=== PATIENT | female | born 1990 | race Caucasian/White ===

== ENCOUNTER 2024-07-30 10:00 | Outpatient (CLI) | payer MEDICAID, SELFPAY ==
--- NOTE | 2024-07-30 11:06 | ANES.PREANE2 ---
Pre-Anesthetic Assessment Preop Diagnosis: IUP Operation Date: 08/06/24 07:20 Proposed Procedures p Section Repeat 15547(Not Applicable) - Rajat Pryor MD Familial anesthetic complications: None Social No alcohol and No tobacco Exam alert, oriented x 3, clear to auscultation bilaterally and regular rate & rhythm Airway Mallampati: Class I Dentition: full Anesthetic Plan ASA status: 2 Anesthesia: Regional (specify below) Other: Spinal Risk of > 500 ml blood loss (7ml/kg in children): Yes, adequate IV access and fluids planned
--- OUTSIDE RECORDS SUMMARY | 2024-08-15 14:44 | XMS_ITS | Data Portability ---
Author Organization DELISA Eloy Cummings [facility], [facility] Address [address] [address] Assessment Encounter Date Assessment Date Assessment LastModified by Organization Details LastModified Time 07/17/2024 07/17/2024 We once again discussed the risks of an ltcs and her increased risks due to the number of ltcs that she has had. Not available 07/17/2024 11:44:27 07/31/2024 07/31/2024 Recheck cbc due to anemia and ltcs next week. Not available 07/31/2024 12:54:35 Plan of Treatment Reminders Order Date Submit Date Provider Last Modified By Organization Details Last Modified Time Details Appointments POST-P ARTUM VISIT 2024 09:40A M Rajat Pryor MD Not available Not available Not available Lab CBC 2024 025 GRZEGORZ [facility], [address], [place], [address], 07/31/2024 13:15:05 strept ococcu s group B, cultur e, vagina l or rectal 2024 025 kat [facility], [facility] [address] Rodriguez, [place], [address], 07/25/2024 09:21:07 Referral None record ed. Procedures None record ed. Surgeries None record ed. Imaging None record ed. Medication Orders None record ed. Patient TargetsNo targets recorded. Patient InstructionsNo instructions recorded. Reason for Referral None Reported. Results Created Date Observation Date Name Description Value Unit Range Abnormal Flag Note LastModifiedBy Organization Detail LastModifiedTime 06/30/1906/29/2024 CBC WBC 10.7 x10 4.0-10 .5 high Not Available [facility] [address], [place], [address], 06/29/2024 13:03:35 06/30/19 25 06/29/2024 CBC RBC 3.96 x10 3.50-5 .50 Not Available [facility] [address], [place], [address], 06/29/2024 13:03:35 06/30/19 25 06/29/2024 CBC HGB 8.9 g/dL 12.0-1 6.0 low Not Available [facility] [address] [facility] 1, [place], [address], 06/29/2024 13:03:35 06/30/19 25 06/29/2024 CBC HCT 29.4 % 37.0-4 7.0 low Not Available [facility] [address] [facility] 1, [place], [address], 06/29/2024 13:03:35 06/30/19 25 06/29/2024 CBC MCV 74.2 fL 80.0-9 9.9 low Not Available [facility] [address] [facility] 1, [place], [address], 06/29/2024 13:03:35 06/30/19 25 06/29/2024 CBC MCH 22.5 pg 27.0-3 2.0 low Not Available [facility] [address] [facility] [address], [place], [address], 06/29/2024 13:03:35 06/30/19 25 06/29/2024 CBC MCHC 30.3 g/dL 32.0-3 6.0 low Not Available [facility] [address] [place] Kiana [facility] 1, [place], [address], 06/29/2024 13:03:35 06/30/19 25 06/29/2024 CBC RDW 17.9 % 11.5-1 4.5 high Not Available [facility] [address] [facility] 1, [place], [address], 06/29/2024 13:03:35 06/30/19 25 06/29/2024 CBC plt 209.1 x10 140.0- 451.0 Not Available [facility] [address] [facility] 1, [place], [address], 06/29/2024 13:03:35 06/30/19 25 06/29/2024 CBC lymphocytes % 10.5 % 20.0-5 0.0 low Not Available [facility] [address] [facility] 1, [place], [address], 06/29/2024 13:03:35 06/30/19 25 06/29/2024 CBC granulcytes % 83.8 % 30.0-7 0.0 high Not Available [facility] [address] [facility] 1, [place], [address], 06/29/2024 13:03:35 06/30/1906/29/2024 CBC monocytes % 4.7 % 2.0-16 .0 Not Available [facility] [address] [place] [facility], [place], [address], 06/29/2024 13:03:35 06/30/1906/29/2024 CBC granulcytes# 9.0 x10 Not Lashon ilable [facility] [address] [facility] 1, [place], [address], 06/29/2024 13:03:35 06/30/19 25 06/29/2024 CBC lymphocytes # 1.1 x10 Not Available [facility] [address] [facility] 1, [place], [address], 06/29/2024 13:03:35 06/30/19 25 06/29/2024 CBC monocytes # 0.5 x10 Not Avai lable [facility] [address] [facility] 1, [place], [address], 06/29/2024 13:03:35 06/30/19 25 06/29/2024 GLUCO SE SCREE N glucose screen 126.0 mg/dL Not Available [facility] [address] [facility] 1, [place], [address], 06/29/2024 13:26:37 06/30/19 25 06/30/2024 DRUG MONIT OR, PANEL 1, SCREE N, URINE amphetamines NEGATI VE NG/mL <500 See Note A See Note A Not Available [employer] [address] [address] [address], [place], [address], 06/30/2024 22:41:00 06/30/19 25 06/30/2024 DRUG MONIT OR, PANEL 1, SCREE N, URINE barbiturates NEGATI VE NG/mL <300 See Note A See Note A Not Available [employer] [address] [address] [address], [place], [address], 06/30/2024 22:41:00 06/30/19 25 06/30/2024 DRUG MONIT OR, PANEL 1, SCREE N, URINE benzodiazepi [place] NEGATI VE NG/mL <100 See Note A See Note A Not Available [facility] [address] [address] [address], [place], [address], 06/30/2024 22:41:00 06/30/19 25 06/30/2024 DRUG MONIT OR, PANEL 1, SCREE N, URINE cocaine metabolite NEGATI VE NG/mL <150 See Note A See Note A Not Available [facility] [address] [address] [address], [place], [address], 06/30/2024 22:41:00 06/30/1906/30/2024 DRUG MONIT OR, PANEL 1, SCREE N, URINE marijuana metabolite NEGATI VE NG/mL <20 See Note A See Note A Not Available [address] [address] [address], [place], [address], 06/30/2024 22:41:00 06/30/19 25 06/30/2024 DRUG MONIT OR, PANEL 1, SCREE N, URINE methadone metabolite NEGATI VE NG/mL <100 See Note A See Note A Not Available [employer] [address] [address] [address], [place], [address], 06/30/2024 22:41:00 06/30/19 25 06/30/2024 DRUG MONIT OR, PANEL 1, SCREE N, URINE opiates NEGATI VE NG/mL <100 See Note A See Note A Not Available [employer] [facility] [address] [address] [address], [place], [address], 06/30/2024 22:41:00 06/30/1906/30/2024 DRUG MONIT OR, PANEL 1, SCREE N, URINE oxycodone NEGATI VE NG/mL <100 See Note A See Note A Not Available [employer] [address] [address] [address], [place], [address], 06/30/2024 22:41:00 06/30/1906/30/2024 DRUG MONIT OR, PANEL 1, SCREE N, URINE phencyclidin e NEGATI VE NG/mL <25 See Note A See Note A Not Available [address] [address] [address], [place], [address], 06/30/2024 22:41:00 06/30/19 25 06/30/2024 DRUG MONIT OR, PANEL 1, SCREE N, URINE creatinine 10.9 mg/dL > or = 20.0 low Not Available [address] [address] [address], [place], [address], 06/30/2024 22:41:00 06/30/1906/30/2024 DRUG MONIT OR, PANEL 1, SCREE N, URINE specific gravity 1.003 > or = 1.003 Not Available [address] [address] [address], [place], [address], 06/30/2024 22:41:00 06/30/1906/30/2024 DRUG MONIT OR, PANEL 1, SCREE N, URINE pH 7.8 4.5-9. 0 Not Available [facility] [address] [address] [address] , [place], [address], 06/30/2024 22:41:00 06/30/1906/30/2024 DRUG MONIT OR, PANEL 1, SCREE N, URINE oxidant NEGATI VE mcg/m L <200 Not Available [address] [address] [place], [address], 06/30/2024 22:41:00 06/30/1906/30/2024 DRUG MONIT ORING TEMPL ATE notes and comments This drug testi ng is for medic al treat ment only. Geeta sis was perfo rmed as non-f orens ic testi ng and these resul ts shoul d be used only by [facility] to rende r diagn osis or treat ment, or to monit or progr ess of medic al condi tions . Note A: The resul ts are presu mptiv e; based only on scree sandro metho ds, and they have not been confi rmed by a defin itive metho d. Healt hcare Provi ders needi ng Inter preta tion sherry tansarah thomas e conta ct us at 1.877 .40.R XTOX (1.87 7.407 .9869 ) M-F, 8am to 10pm EST Not Available [address] [address] [place], [address], 06/30/2024 22:41:01 06/30/19 25 07/03/2024 THINP REP TIS PAP (REFL ) HPV MRNA E6/E7 clinical information: normal Pregn ant Not Available [address], [address], 07/03/2024 19:21:29 06/30/19 25 07/03/2024 THINP REP TIS PAP (REFL ) HPV MRNA E6/E7 LMP: normal NA Not Available [address], [address], 07/03/2024 19:21:29 06/30/19 25 07/03/2024 THINP REP TIS PAP (REFL ) HPV MRNA E6/E7 prev. Pap: normal NA Not Available [address], [address], 07/03/2024 19:21:29 06/30/19 25 07/03/2024 THINP REP TIS PAP (REFL ) HPV MRNA E6/E7 prev. BX: normal NA Not Available [address], [address], 07/03/2024 19:21:29 06/30/19 25 07/03/2024 THINP REP TIS PAP (REFL ) HPV MRNA E6/E7 source: normal Cervi x, Endoc ervix Not Available [address], [address], 07/03/2024 19:21:29 06/30/1907/03/2024 THINP REP TIS PAP (REFL ) HPV MRNA E6/E7 statement of adequacy: normal Satis facto ry for evalu ation . Endoc ervic al/tr ansfo rmati on zone compo nent absen t. Not Available [address], [address], 07/03/2024 19:21:29 06/30/19 25 07/03/2024 THINP REP TIS PAP (REFL ) HPV MRNA E6/E7 interpretati on/result: normal Cytol ogy Resul ts: Negat rayne for intra epith elial lesio n or malaustin thomson . Not Available [address], [address], 07/03/2024 19:21:29 06/30/19 25 07/03/2024 THINP REP TIS PAP (REFL ) HPV MRNA E6/E7 comment: normal This Pap test has been evalu ated with al mondragon [employer] o[employer]y . Not Available [address] [place], [address], 07/03/2024 19:21:29 06/30/1907/03/2024 THINP REP TIS PAP (REFL ) HPV MRNA E6/E7 cytotechnolo gist: normal CLIVE, CT( CP) CT scree sandro locat ion: [address] [address] [place] [address] Not Available [address] [address] [place], [address], 07/03/2024 19:21:29 06/30/1907/03/2024 THINP REP TIS PAP (REFL ) HPV MRNA E6/E7 review cytotechnolo gist: normal MVB, CT( CP) CT Scree sandro Locat ion: [address] [address] [place] [address] Not Available [address] [place], [address], 07/03/2024 19:21:29 06/30/1907/03/2024 THINP REP TIS PAP (REFL ) HPV MRNA E6/E7 comment EXPLA NATOR Y NOTE: The Pap is a scree sandro test for cervi hamlet cance r. It is not a diagn ostic test and is subje ct to false negat rayne and false posit rayne resul ts. It is most relia ble when a satis facto ry sampl e, regul dottie obtai shaka, is submi tted with relev ant clini hamlet findi ngs and histo ry, and when the Pap resul t is evalu ated along with histo maria elena and curre nt clini hamlet infor matio n. Not Available [facility] [address] [place], [address], 07/03/2024 19:21:29 06/30/1906/29/2024 reuben wet prep Whiff negati ve Not Available [facility] ([facility]) [address] [place] [address], [address], 06/29/2024 11:54:17 06/30/19 25 06/29/2024 reuben wet prep Epi 6-8 Not Available [facility] ([facility]) [address] [place] [address], [address], 06/29/2024 11:54:17 06/30/19 25 06/29/2024 reuben wet prep WBC 6-8 Not Available [facility] ([facility]) [address] [place] [address], [address], 06/29/2024 11:54:17 06/30/1906/29/2024 reuben wet prep RBC 0-1 Not Available [facility] ([facility]) [address] [place] [address], [address], 06/29/2024 11:54:17 06/30/1906/29/2024 reuben wet prep Bacteria 4++++ mixed rods Not Available [facility] ([facility]) [address] [place] [address], [address], 06/29/2024 11:54:17 06/30/1906/29/2024 reuben wet prep Fungus none seen Not Available [facility] ([facility]) [address] [place] [address], [address], 06/29/2024 11:54:17 06/30/19 25 06/29/2024 reuben wet prep Clue Cells positi ve Not Available [facility] ([facility]) [address] [place], [address], 06/29/2024 11:54:17 06/30/19 25 06/29/2024 reuben wet prep Other no trich seen Not Available [facility] ([facility]) [address] [place], [address], 06/29/2024 11:54:17 07/19/19 25 07/23/2024 STREP TOCOC CUS, GROUP B CULTU RE streptococcu s, group B culture SEE NOTE abnormal STREP TOCOC CUS, GROUP B CULTU RE Micro Numbe r: [id number] Test Statu s: Final Speci men Sourc e: Vagin al/an orect al Speci men Quali ty: Adequ ate Resul t: Group B Strep tococ cus isola catherine Beta- hemol ytic strep tococ ci are predi ctabl y susce ptibl e to Penic illin and other beta- lacta ms. Susce ptibi lity testi ng not routi sunny perfo rmed. Pleas e conta ct the labor atory withi n 3 days if susce ptibi lity testi ng is theo ed. Note per CDC guide lines optim al recov frank is achie dina by swabb ing both the lower vagin a and rectu m (thro ugh the anal sphin cter) . Not Available [facility] [address] [address] , [place], [address], 07/23/2024 17:17:19 08/01/1907/31/2024 CBC WBC 7.5 x10 4.0-10 .5 Not Available [facility] [address] [facility] [address], [place], [address], 07/31/2024 13:15:05 08/01/19 25 07/31/2024 CBC RBC 3.79 x10 3.50-5 .50 Not Available [facility] [address] [facility] [address], [place], [address], 07/31/2024 13:15:05 08/01/19 25 07/31/2024 CBC HGB 8.3 g/dL 12.0-1 6.0 low Not Available [facility] [address] [facility] 1, [place], [address], 07/31/2024 13:15:05 08/01/19 25 07/31/2024 CBC HCT 27.8 % 37.0-4 7.0 low Not Available [facility] [address] [facility] 1, [place], [address], 07/31/2024 13:15:05 08/01/19 25 07/31/2024 CBC MCV 73.3 fL 80.0-9 9.9 low Not Available [facility] [address] [facility] 1, [place], [address], 07/31/2024 13:15:05 08/01/19 25 07/31/2024 CBC MCH 21.8 pg 27.0-3 2.0 low Not Available [facility] [address] [facility] 1, [place], [address], 07/31/2024 13:15:05 08/01/19 25 07/31/2024 CBC MCHC 29.7 g/dL 32.0-3 6.0 low Not Available [facility] [address] [facility] 1, [place], [address], 07/31/2024 13:15:05 08/01/19 25 07/31/2024 CBC RDW 19.4 % 11.5-1 4.5 high Not Available [facility] [address] [facility] 1, [place], [address], 07/31/2024 13:15:05 08/01/19 25 07/31/2024 CBC plt 168.5 x10 140.0- 451.0 Not Available [facility] [address] [facility] 1, [place], [address], 07/31/2024 13:15:05 08/01/19 25 07/31/2024 CBC lymphocytes % 21.9 % 20.0-5 0.0 Not Available [facility] [address] [facility] 1, [place], [address], 07/31/2024 13:15:05 08/01/19 25 07/31/2024 CBC granulcytes % 72.7 % 30.0-7 0.0 high Not Available [facility] [address] [address], [place], [address], 07/31/2024 13:15:05 08/01/19 25 07/31/2024 CBC monocytes % 4.5 % 2.0-16 .0 Not Available [facility] [address] [address], [place], [address], 07/31/2024 13:15:05 08/01/19 25 07/31/2024 CBC granulcytes# 5.4 x10 Not Lashon ilable [facility] [address] [address], [place], [address], 07/31/2024 13:15:05 08/01/19 25 07/31/2024 CBC lymphocytes # 1.6 x10 Not Available [facility] [address] [address], [place], [address], 07/31/2024 13:15:05 08/01/19 25 07/31/2024 CBC monocytes # 0.3 x10 Not Avai lable [facility] [address] [address], [place], [address], 07/31/2024 13:15:05 07/05/19 25 06/27/2024 US, obste tric, 3rd trime ster No observ ation record ed. [facility] [address] [place], [address], 07/05/2024 09:21:49 07/12/19 25 07/10/2024 US, obste tric, 3rd trime ster No observ ation record ed. [email or web address] Not Available 07/12 09:28:37 Result Notes None recorded. Problems Name Problem SNOMED Code Status Onset Date Resolution Date Notes Provider Name and Address Organization Details Recorded Time 33148763 Completed 202408/07/2024 GAY DUQUE null [facility] 10:56:50 Heartburn 20569048 Active 2024 GAY DUQUE null [facility] 14:47:46 Multigravid a 512842082 Completed 2024 SHAHRIAR gutierrez, [facility] 09:04:11 Anemia of 37273479 Active 2024 Rajat Pryor MD [address] [place] [address], [phone], [facility] 12:27:22 Anemia 753572529 Active 2024 Rajat Pryor MD [address] [place] [address], [phone], [facility] 11:59:29 Problem Notes None recorded. Procedures Surgical History Date Name Laterality Status Provider Name and Address Organization Details Recorded Time 06/30/19 cytology examination - general completed [facility] 07/17/2024 10:34:14 section completed [facility] 08/07/2024 10:59:00 Imaging Results None recorded. Procedure Notes None recorded. Medical Equipment None Reported. Allergies No known drug allergies Medications Name Sig Start Date Stop Date Status Note LastModified by Organization Details LastModified Time ibuprofen 800 mg tablet Take 1 tablet 3 times a day by oral route. active Not Available Not Available No t Available metronidazol e 500 mg tablet Take 1 tablet twice a day by oral route for 7 days. 07/16 completed vo JR/tn Not Available Not Available Not Available pantoprazole 20 mg tablet,delay ed release TAKE 1 TABLET BY MOUTH EVERY DAY active Not Available Not Available No t Available pantoprazole 40 mg tablet,delay ed release TAKE ONE TABLET BY MOUTH EVERY DAY 06/29 completed Not Available Not Available Not Available ferrous sulfate 325 mg (65 mg iron) tablet TAKE 2 TABLETS BY MOUTH EVERY DAY active Not Available Not Available No t Available active Not Available Not Avai lable Not Available oxycodone 10 mg tablet Take 1 tablet every 4 hours by oral route. active Not Available Not Available No t Available Vitals Date Recorded Body height Body mass index (BMI) Body weight Oxygen saturation Oxygen saturation in Arterial blood by Pulse oximetry Heart rate Respiratory rate Body temperature Systolic blood pressure Diastolic blood pressure Provider Name and Address Organization Details Last Updated DateTime 5 147.32 cm 25.8 kg/m2 96155.6 6 g 96 % 96 % 89 /min 18 /min 98.8 [degF] 100 mm[Hg] 64 mm[Hg] [facility] 5 15:02:40 Date Recorded Body height Body mass index (BMI) Body weight Oxygen saturation Oxygen saturation in Arterial blood by Pulse oximetry Heart rate Respiratory rate Body temperature Systolic blood pressure Diastolic blood pressure Provider Name and Address Organization Details Last Updated DateTime 5 147.32 cm 25 kg/m2 79864.2 9 g 99 % 99 % 84 /min 18 /min 96.6 [degF] 110 mm[Hg] 62 mm[Hg] [facility] 5 10:41:50 Date Recorded Body height Body mass index (BMI) Body weight Oxygen saturation Oxygen saturation in Arterial blood by Pulse oximetry Heart rate Respiratory rate Body temperature Systolic blood pressure Diastolic blood pressure Provider Name and Address Organization Details Last Updated DateTime 147.32 cm 25.6 kg/m2 40362.6 7 g 97 % 97 % 71 /min 18 /min 98.7 [degF] 104 mm[Hg] 62 mm[Hg] GAY DUQUE [facility] 12:03:52 Date Recorded Body height Body mass index (BMI) Body weight Oxygen saturation Oxygen saturation in Arterial blood by Pulse oximetry Heart rate Respiratory rate Body temperature Systolic blood pressure Diastolic blood pressure Provider Name and Address Organization Details Last Updated DateTime 147.32 cm 24.3 kg/m2 18475.1 1 g 99 % 99 % 86 /min 18 /min 98.4 [degF] 118 mm[Hg] 72 mm[Hg] GAY DUQUE [facility] 11:05:03 Social History Question Answer Notes LastModified by Duplia Details LastModified Time Tobacco Smoking Status Current Every Day Smoker less than 1/2 PPD GAY gutierrez [facility] 07/17/2024 10:35:11 Are You Blind Or Do You Have Difficulty Seeing? No Information not available 06/21/2024 Are You Deaf Or Do You Have Serious Difficulty Hearing? No Information not available 06/21/2024 What Was The Date Of Your Most Recent Tobacco Screening? 07/17/2024 Information not available 07/17/2024 What Is Your Relationship Status? Information not available 06/21/2024 Are You Sexually Active? Yes Information not available 06/21/2024 At What Age Did You Start Smoking Tobacco? 19 Information not available 06/21/2024 Do You Have Difficulty Walking Or Climbing Stairs? No Information not available 06/21/2024 Sex: Unknown Functional Status Question Answer Note LastModified by Organizat ion Details LastModified Time Do you use any illicit or recreational drugs? No Information not available 06/21/2024 What is your level of alcohol consumption? None Information not available 06/21/2024 Are you currently employed? No Information not available 06/21/2024 Are you able to care for yourself? Yes Information not available 06/21/2024 Do you have difficulty dressing or bathing? No Information not available 06/21/2024 Mental Status Question Answer Note LastModified by Organization D etails LastModified Time Do you have difficulty concentrating, remembering or making decisions? No Information no t available 06/21/2024 Family History Relationship Description Onset Age of this Age Resolved Age Notes LastModified by Organization Details LastModified Time Father No current problems or disability [email or web address] Not available 0 06/21/2024 14:50:31 Mother No current problems or disability [email or web address] Not available 0 06/21/2024 14:50:31 Medical History No medical history recorded. Gynecological HistoryNo gynecological history recorded. Obstetrics History GPAL:G 7 P 7 0 0 7 Type Value Full Term 7 Living 7 Total 7 Past Encounters Encounter ID Performer Location Encounter Start Date Encounter Closed Date Diagnosis/Indication Diagnosis SNOMED-CT Code Diagnosis ICD10 Code Diagnosis Note [id number] Rajat Pryor MD [facility] ([facility]) [address] [place] [phone] 06/21/2024 14:16:23 06/21/2024 15:44:35 Multigravida 853298290 Z34.83 Gestation period, 32 weeks 8797933 Z3A.32 Heartburn 53545538 R12 41513568 O34.2 19 Eval placental location. [id number] Rajat Pryor MD [facility] ([facility]) [address] [place] [phone] 06/29/2024 10:19:50 06/29/2024 11:25:24 Multigravida 893055052 Z34.83 Gestation period, 32 weeks 5760891 Z3A.32 [id number] Rajat Pryor MD [facility] ([facility]) [address] [place] [address] 06/27/2024 16:13:40 06/29/2024 13:53:05 [id number] Rajat Pryor MD [facility] ([facility]) [address] [place] [phone] 07/10/2024 14:06:23 07/11/2024 08:47:17 [id number] Rajat Pryor MD [facility] ([facility]) [address] [place] [address] 07/17/2024 10:22:33 07/17/2024 11:44:43 [id number] O34.219 Eval placental location. Normal 4958145 2 Z34.83 Gestation period, 35 weeks 19978520 Z3A.35 [id number] Rajat Pryor MD [facility] ([facility]) [address] [place] [address] 07/31/2024 11:19:34 07/31/2024 13:03:09 [id number] O34.219 Eval placental location. Normal pre gnancy in multigravida 5652906768 31818 Z34.80 Gestation period, 37 weeks 94342865 Z3A.37 Anemia of 2734 2003 O99.486 [id number] Rajat Pryor MD [facility] ([facility]) [address] [place] [phone] 08/07/2024 10:40:52 08/08/2024 11:36:06 state 72512411 Z39.2 care status 24 4824900 Z39.2 Anemia 893272784 D64.9 Health Concerns Section Related Observation LastModified by Organization Detai ls LastModified Time None Recorded Concern Status LastModified by Organization Details LastModified Time None Recorded Advance Directives Directive None Recorded Payers Insurance Date Sequence Insurance Name Policy Number Policy Rubin Covered Member ID Rubin Member ID Guarantor Name 08/04/2024 1 [facility] (MEDICAID HMO) Margaret Rasmussen [id number] Margaret Rasmussen 08/04/2024 [facility] (MEDICAID HMO) Margaret Chesterook [id number] Margaret Blake Valery 06/21/2024 1 *SELF PAY* cristhian Blake Valery Notes Date Note Type Note Provider Name and Address Organization Details Recorded Time 07/17/2024 text/html ob routineRep orted bypatient.Associated Symptoms:normal movement; no bleeding; no ROM; no vaginal/vulvar itching or irritation; no frequency; no urgency; no hematuria; no fever; no constipation; no diarrhea/loose stool; no edema; no visual changes; no headache;abdominal pain(right side);contractions(ir regular);vaginal discharge(increased); dysuria(random);nause a;emesis;dizziness;br eathlessnessNotes:Rou nd ligament pain, acid reflux, vaginal pressurePt denies any alcohol or drug use, pt smokes daily transfer from [place] Pt has had a cough for 3 weeks, pt states her ribs hurt and she has chest pain/tightness. Rajat Pryor MD [address] [place] [address], [phone], [facility] 07/17/2024 11:44:37 07/31/2024 text/html ob routineRep orted bypatient.Associated Symptoms:no cramping; normal movement; no bleeding; no ROM; no vaginal discharge; no vaginal/vulvar itching or irritation; no dysuria; no frequency; no urgency; no hematuria; no fever; no edema; no visual changes; no headache; no breathlessness;abdomi nal pain(right side);contractions(ir regular);nausea;emesi s;constipation;diarrh ea/loose stool;dizzinessNotes: Round ligament pain, acid reflux, vaginal pressure low/mid back painPt denies any alcohol or drug use, pt smokes daily transfer from [place] Rajat Pryor MD [address] [place] [address], [phone], [facility] 07/31/2024 12:55:14 OBGyn Episode Ob Episode Information Episode Created Date Number of Fetuses Patient Bloodtype Patient rh Status Prepregnancy Weight lbs Domestic Partner Domestic Partner Phone Father Name Improvement Rn Status 06/22/19 1 O Positive Jose Antonio CLOSED Fetus Data First Name Last Name Admitted to NICU Weight (g) Sex Living Outcome Pediatric Complications Fetus ID Race Codes Race Delivery Type Ricky false 2523.10 55 M true Full Term 8103 Problems Problem Notes Review previous U/S from 2nd trimesterHaving ltcs before 39 weeks due to high number of c-sections and risk of uterine rupture if she goes into labor.-08/06/24 Problem Name Start Date End Date Resolution Snomed Code Not e Multigravida 06/29/2024 [id number] Michael Calculation Initial Michael Date Initial Exam Date Initial Exam Provider Initial Ultrasound Date Last Menstrual Period Date Ultra Sound Weeks Gestation 06/21/2024 11/11/2023 0 Eighteen To Twenty Week Michael Update Ultra Sound Date Fundal Height At Umbil Quickening Date Ultra Sound Latest Weeks Gestation Final Michael Confirmed By Final Michael Confirmed Date Final Michael Date Ultra Sound Latest Days Gestation 0 08/16/19 25 0 Pre-jd Flowsheet Flowsheet Date 06/21/2024 Cordova Score Blood Edema Fundus Height Fundus Units Glucose Ketones Leukocytes Nitrite Labor Signs Protein Cervic Dilation Cervic Effacement Cervic Station 31 cm [place] Crane Type Weight in lbs Pre/Post Dialysis Refused Weight 124.325034810929 BP Diastolic BP Location Tested BP Systolic BP Type 60 112 sitting Fetus Heart Rate Present A 158 Present Fetus Movement A Yes Comments OBI transfer from [place] Flowsheet Date 06/21/2024 Cordova Score Blood Edema Fundus Height Fundus Units Glucose Ketones Leukocytes Nitrite Labor Signs Protein Cervic Dilation Cervic Effacement Cervic Station Type Weight in lbs Pre/Post Dialysis Refused BP Diastolic BP Location Tested BP Systolic BP Type Fetus Heart Rate Present Fetus Movement Comments scheduled for 08/06, anesthesia consult-07/30/24 Flowsheet Date 06/27/2024 Cordova Score Blood Edema Fundus Height Fundus Units Glucose Ketones Leukocytes Nitrite Labor Signs Protein Cervic Dilation Cervic Effacement Cervic Station Type Weight in lbs Pre/Post Dialysis Refused BP Diastolic BP Location Tested BP Systolic BP Type Fetus Heart Rate Present Fetus Movement Comments Flowsheet Date 06/29/2024 Cordova Score Blood Edema Fundus Height Fundus Units Glucose Ketones Leukocytes Nitrite Labor Signs Protein Cervic Dilation Cervic Effacement Cervic Station none trace Type Weight in lbs Pre/Post Dialysis Refused Weight 122.189386262136 BP Diastolic BP Location Tested BP Systolic BP Type 70 118 Fetus Heart Rate Present A 132 Fetus Movement A Yes Comments Flowsheet Date 07/03/2024 Cordova Score Blood Edema Fundus Height Fundus Units Glucose Ketones Leukocytes Nitrite Labor Signs Protein Cervic Dilation Cervic Effacement Cervic Station Type Weight in lbs Pre/Post Dialysis Refused BP Diastolic BP Location Tested BP Systolic BP Type Fetus Heart Rate Present Fetus Movement Comments u/s on 06/27/24, MICHAEL 08/15/24, EGA 33.0, vertex, No previa seen. Flowsheet Date 07/10/2024 Cordova Score Blood Edema Fundus Height Fundus Units Glucose Ketones Leukocytes Nitrite Labor Signs Protein Cervic Dilation Cervic Effacement Cervic Station Type Weight in lbs Pre/Post Dialysis Refused BP Diastolic BP Location Tested BP Systolic BP Type Fetus Heart Rate Present Fetus Movement Comments u/s on 07/10/24 Vertex, MICHAEL , Nose/lips appear normal Flowsheet Date 07/10/2024 Cordova Score Blood Edema Fundus Height Fundus Units Glucose Ketones Leukocytes Nitrite Labor Signs Protein Cervic Dilation Cervic Effacement Cervic Station 33 cm none none Negative [place] Crane neg Type Weight in lbs Pre/Post Dialysis Refused Weight 123.601753619207 BP Diastolic BP Location Tested BP Systolic BP Type 64 100 sitting Fetus Heart Rate Present A 142 Present Fetus Movement A Yes Comments abdominal pain/cramping, belkis rrhea,constipation, N/V,round ligament pain, acid reflux,vaginal pressure, random dysuria Flowsheet Date 07/10/2024 Cordova Score Blood Edema Fundus Height Fundus Units Glucose Ketones Leukocytes Nitrite Labor Signs Protein Cervic Dilation Cervic Effacement Cervic Station Type Weight in lbs Pre/Post Dialysis Refused BP Diastolic BP Location Tested BP Systolic BP Type Fetus Heart Rate Present Fetus Movement Comments Flowsheet Date 07/17/2024 Cordova Score Blood Edema Fundus Height Fundus Units Glucose Ketones Leukocytes Nitrite Labor Signs Protein Cervic Dilation Cervic Effacement Cervic Station none trace Negative David Crane neg Type Weight in lbs Pre/Post Dialysis Refused Weight 119.798331453346 BP Diastolic BP Location Tested BP Systolic BP Type 62 110 sitting Fetus Heart Rate Present A 150 Present Fetus Movement A Yes Comments cough,rib pain,chest tightne ss, right side abd pain, increased discharge, vaginal pressure, N/V, random dysuria, acid reflux, sob, dizziness, round ligament pain Group B today Flowsheet Date 07/17/2024 Cordova Score Blood Edema Fundus Height Fundus Units Glucose Ketones Leukocytes Nitrite Labor Signs Protein Cervic Dilation Cervic Effacement Cervic Station Type Weight in lbs Pre/Post Dialysis Refused BP Diastolic BP Location Tested BP Systolic BP Type Fetus Heart Rate Present Fetus Movement Comments RA for Home State Flowsheet Date 07/26/2024 Cordova Score Blood Edema Fundus Height Fundus Units Glucose Ketones Leukocytes Nitrite Labor Signs Protein Cervic Dilation Cervic Effacement Cervic Station Type Weight in lbs Pre/Post Dialysis Refused BP Diastolic BP Location Tested BP Systolic BP Type Fetus Heart Rate Present Fetus Movement Comments Group B strep PositiveOB rec ords sent Flowsheet Date 07/31/2024 Cordova Score Blood Edema Fundus Height Fundus Units Glucose Ketones Leukocytes Nitrite Labor Signs Protein Cervic Dilation Cervic Effacement Cervic Station 35 cm none trace Negative [place] Crane Type Weight in lbs Pre/Post Dialysis Refused Weight 122.391502191903 BP Diastolic BP Location Tested BP Systolic BP Type 62 104 sitting Fetus Heart Rate Present A 148 Present Fetus Movement A Yes Comments Right side pain, abdominal p ain, nausea/vomiting, constipation/diarrhea,dizziness, mid/low back pain vaginal pressure Flowsheet Date 08/07/2024 Cordova Score Blood Edema Fundus Height Fundus Units Glucose Ketones Leukocytes Nitrite Labor Signs Protein Cervic Dilation Cervic Effacement Cervic Station Type Weight in lbs Pre/Post Dialysis Refused Weight 116.768658023486 BP Diastolic BP Location Tested BP Systolic BP Type 72 118 sitting Fetus Heart Rate Present Fetus Movement Comments Menstrual History Last Menstrual Date Menses Monthly On Bcp Conception Prior Menses Frequency Hcg Plus Date Menarche Onset Age 0911/11/2023 Genetic Screening And Infection History Question Response Note Patient's Age Will Be 35 Years Or Older At Estim ated Date of Delivery false Thalassemia (Bolivian, Gabonese, Mediterranean, Or Background): MCV < 80 false Neural Tube Defect (Meningomyelocele, Spina Bifi da, Or Anencephaly) false Congenital Heart Defect false Down Syndrome false Dimitri-Sachs (eg, Jew, Cajun, Urdu-[place]) f alse Kem Disease false Sickle Cell Disease Or Trait () false Hemophilia Or Other Blood Disorders false Muscular Dystrophy false Cystic Fibrosis false Baraga's Chorea false Intellectual Disability/Autism false If Yes, Was Person Tested For Fragile X? false Other Inherited Genetic Or Chromosomal Disorder false Maternal Metabolic Disorder (eg, Type 1 Diabetes , PKU) false Patient Or Baby's Father Had A Child With Defects Not Listed Above false Recurrent Loss, Or A Stillbirth false Medications (including Suppl ements, Vitamins, Herbs, OTC Drugs), Illicit/Recreational Drugs, Alcohol false If Yes, Agent(s) And Strength/Dosage false Any Other Genetic History false Live With Someone With TB Or Exposed To TB false Patient Or Partner Has History Of Genital Herpes false Rash Or Viral Illness Since Last Menstrual Perio d false History Of STD, Gonorrhea, Chlamydia, HPV, Syphi lis false Other Infection History false History of HIV false History of Hepatitis false Prior GBS-infected child false Hemoglobinopathy Or Carrier false Other Structural Defect false Recent Travel History Outside of Country false Mental Retardation/Autism false Delivery Information Delivery Date Delivery Type Labor Anesthesia Weeks Gestation Incision Type Labor Labor Length Hrs Delivered By Post Complications Tubal Sterilization Discharge Date Comments 5 38.1 None Discharge Information Feeding Method Contraceptive Method Maternal HG B and HCT Levels Breast Ob Episode Information Episode Created Date Number of Fetuses Patient Bloodtype Patient rh Status Prepregnancy Weight lbs Domestic Partner Domestic Partner Phone Father Name Improvement Rn Status 06/22/19 25 1 CLOSED Fetus Data First Name Last Name Admitted to NICU Weight (g) Sex Living Outcome Pediatric Complications Fetus ID Race Codes Race Delivery Type 2267.96 M Full Term 8108 Michael Calculation Initial Michael Date Initial Exam Date Initial Exam Provider Initial Ultrasound Date Last Menstrual Period Date Ultra Sound Weeks Gestation 0 Eighteen To Twenty Week Michael Update Ultra Sound Date Fundal Height At Umbil Quickening Date Ultra Sound Latest Weeks Gestation Final Michael Confirmed By Final Michael Confirmed Date Final Michael Date Ultra Sound Latest Days Gestation 0 0 Menstrual History Last Menstrual Date Menses Monthly On Bcp Conception Prior Menses Frequency Hcg Plus Date Menarche Onset Age Delivery Information Delivery Date Delivery Type Labor Anesthesia Weeks Gestation Incision Type Labor Labor Length Hrs Delivered By Post Complications Tubal Sterilization Discharge Date Comments 7 39 no complicat ions- [place] Discharge Information Feeding Method Contraceptive Method Maternal HG B and HCT Levels Ob Episode Information Episode Created Date Number of Fetuses Patient Bloodtype Patient rh Status Prepregnancy Weight lbs Domestic Partner Domestic Partner Phone Father Name Improvement Rn Status 06/22/19 1 CLOSED Fetus Data First Name Last Name Admitted to NICU Weight (g) Sex Living Outcome Pediatric Complications Fetus ID Race Codes Race Delivery Type 2806.37 3704 M Full Term 8105 Michael Calculation Initial Michael Date Initial Exam Date Initial Exam Provider Initial Ultrasound Date Last Menstrual Period Date Ultra Sound Weeks Gestation 0 Eighteen To Twenty Week Michael Update Ultra Sound Date Fundal Height At Umbil Quickening Date Ultra Sound Latest Weeks Gestation Final Michael Confirmed By Final Michael Confirmed Date Final Michael Date Ultra Sound Latest Days Gestation 0 0 Menstrual History Last Menstrual Date Menses Monthly On Bcp Conception Prior Menses Frequency Hcg Plus Date Menarche Onset Age Delivery Information Delivery Date Delivery Type Labor Anesthesia Weeks Gestation Incision Type Labor Labor Length Hrs Delivered By Post Complications Tubal Sterilization Discharge Date Comments 2 41 no complicat ions delfino Discharge Information Feeding Method Contraceptive Method Maternal HG B and HCT Levels Ob Episode Information Episode Created Date Number of Fetuses Patient Bloodtype Patient rh Status Prepregnancy Weight lbs Domestic Partner Domestic Partner Phone Father Name Improvement Rn Status 06/22/19 1 CLOSED Fetus Data First Name Last Name Admitted to NICU Weight (g) Sex Living Outcome Pediatric Complications Fetus ID Race Codes Race Delivery Type 2352.78 1704 M Full Term 8106 Michael Calculation Initial Michael Date Initial Exam Date Initial Exam Provider Initial Ultrasound Date Last Menstrual Period Date Ultra Sound Weeks Gestation 0 Eighteen To Twenty Week Michael Update Ultra Sound Date Fundal Height At Umbil Quickening Date Ultra Sound Latest Weeks Gestation Final Michael Confirmed By Final Michael Confirmed Date Final Michael Date Ultra Sound Latest Days Gestation 0 0 Menstrual History Last Menstrual Date Menses Monthly On Bcp Conception Prior Menses Frequency Hcg Plus Date Menarche Onset Age Delivery Information Delivery Date Delivery Type Labor Anesthesia Weeks Gestation Incision Type Labor Labor Length Hrs Delivered By Post Complications Tubal Sterilization Discharge Date Comments 4 40 no complicat ions- Simba Discharge Information Feeding Method Contraceptive Method Maternal HG B and HCT Levels Ob Episode Information Episode Created Date Number of Fetuses Patient Bloodtype Patient rh Status Prepregnancy Weight lbs Domestic Partner Domestic Partner Phone Father Name Improvement Rn Status 06/22/19 25 1 CLOSED Fetus Data First Name Last Name Admitted to NICU Weight (g) Sex Living Outcome Pediatric Complications Fetus ID Race Codes Race Delivery Type 3288.54 2 M Full Term 8104 Michael Calculation Initial Michael Date Initial Exam Date Initial Exam Provider Initial Ultrasound Date Last Menstrual Period Date Ultra Sound Weeks Gestation 0 Eighteen To Twenty Week Michael Update Ultra Sound Date Fundal Height At Umbil Quickening Date Ultra Sound Latest Weeks Gestation Final Michael Confirmed By Final Michael Confirmed Date Final Michael Date Ultra Sound Latest Days Gestation 0 0 Menstrual History Last Menstrual Date Menses Monthly On Bcp Conception Prior Menses Frequency Hcg Plus Date Menarche Onset Age Delivery Information Delivery Date Delivery Type Labor Anesthesia Weeks Gestation Incision Type Labor Labor Length Hrs Delivered By Post Complications Tubal Sterilization Discharge Date Comments 9 42 failure to progress- Jose Antonio Discharge Information Feeding Method Contraceptive Method Maternal HG B and HCT Levels Ob Episode Information Episode Created Date Number of Fetuses Patient Bloodtype Patient rh Status Prepregnancy Weight lbs Domestic Partner Domestic Partner Phone Father Name Improvement Rn Status 06/22/19 25 1 CLOSED Fetus Data First Name Last Name Admitted to NICU Weight (g) Sex Living Outcome Pediatric Complications Fetus ID Race Codes Race Delivery Type 3175.14 4 M Full Term 8107 Michael Calculation Initial Michael Date Initial Exam Date Initial Exam Provider Initial Ultrasound Date Last Menstrual Period Date Ultra Sound Weeks Gestation 0 Eighteen To Twenty Week Michael Update Ultra Sound Date Fundal Height At Umbil Quickening Date Ultra Sound Latest Weeks Gestation Final Michael Confirmed By Final Michael Confirmed Date Final Michael Date Ultra Sound Latest Days Gestation 0 0 Menstrual History Last Menstrual Date Menses Monthly On Bcp Conception Prior Menses Frequency Hcg Plus Date Menarche Onset Age Delivery Information Delivery Date Delivery Type Labor Anesthesia Weeks Gestation Incision Type Labor Labor Length Hrs Delivered By Post Complications Tubal Sterilization Discharge Date Comments 5 40 no complicat ions- Deng Discharge Information Feeding Method Contraceptive Method Maternal HG B and HCT Levels Ob Episode Information Episode Created Date Number of Fetuses Patient Bloodtype Patient rh Status Prepregnancy Weight lbs Domestic Partner Domestic Partner Phone Father Name Improvement Rn Status 06/22/19 25 1 CLOSED Fetus Data First Name Last Name Admitted to NICU Weight (g) Sex Living Outcome Pediatric Complications Fetus ID Race Codes Race Delivery Type 1814.36 8 F Full Term 8109 Michael Calculation Initial Michael Date Initial Exam Date Initial Exam Provider Initial Ultrasound Date Last Menstrual Period Date Ultra Sound Weeks Gestation 0 Eighteen To Twenty Week Michael Update Ultra Sound Date Fundal Height At Umbil Quickening Date Ultra Sound Latest Weeks Gestation Final Michael Confirmed By Final Michael Confirmed Date Final Michael Date Ultra Sound Latest Days Gestation 0 0 Menstrual History Last Menstrual Date Menses Monthly On Bcp Conception Prior Menses Frequency Hcg Plus Date Menarche Onset Age Delivery Information Delivery Date Delivery Type Labor Anesthesia Weeks Gestation Incision Type Labor Labor Length Hrs Delivered By Post Complications Tubal Sterilization Discharge Date Comments 0 37 placenta insuffici ency and intrauter ine growth restricti on.-Reily Discharge Information Feeding Method Contraceptive Method Maternal HG B and HCT Levels
--- OUTSIDE RECORDS SUMMARY | 2024-08-15 14:44 | XMS_ITS | Patient Health Record ---
Author Organization [address] [place] [address] e Cor Address [address] [place] [phone] Care Team Providers Care Track Manager Name Role Phone Fransico Mon Primary Care Provider Allergies No Known Allergies Results Component Value Reference Range Notes Urine Dip Reviewed date:10/26/2023 04:47:55 PM Interpretation:OK for Patient Performing Lab: Notes/Report: Testing performed at the [address] [place] [address] location. U COL Straw Yellow U TURB Clear Clear U SG 1.015 1.000-1.030 U PH 8 5.0-8.0 U PRO neg Negative mg/dL U GLU norm Normal mg/dL U KET neg Negative mg/dL U BILI neg Negative mg/dL U BLD neg Negative DOMINIQUE/ul U NIT neg Negative U LEUK neg Negative BRYANT/uL U UBG norm Normal mg/dl HCG, Qual Reviewed date:10/26/2023 04:47:55 PM Interpretation:Negative Performing Lab: Notes/Report: Items were attached to this order: HCG Testing performed at the [address] [place] [address] location. HCG Negative Negative Internal QC Pass Internal QC Verified Reason For Referral Reason Pelvic pain Diagnosis 1 Pelvic pain (R10.2) Referral Organization [address] [place] [address] are Cor Referring Provider First Name Fransico Referring Provider Last Name Yaa Referring Provider Speciality Family Pra ctice Referred Provider [facility] Referred Provider Specialty OB - Gynecol ogy General Notes JosephGisel 2023 04:44:10 PM > will contact patient, Gisel Joseph 10/27/2023 08:29:12 AM >tried to call the patient, left a voicemail . Faxed referral to [facility] since they are least expensive for consults, Julian Pierre 11/01/2023 02:07:40 PM >I called to check on this. They are processing referrals and are behind about a week. I will check back on this when applicable., [place] Rebecca 11/16/2023 11:17:43 AM > spoke with [facility] they have attempted to reach patient and left voicemail with no response, Rebecca Moran 11/16/2023 11:18:10 AM > attempted to reach patient, phone number has calling restrictions mailing postcard, Rebecca Moran 11/22/2023 10:50:11 AM > phone number still not working , TE sent to provider, Rebecca Moran 11/22/2023 04:54:10 PM > Referral Priority Routine Social History Tobacco Use: Social History Observation Description Date Details (start date - stop date) Former Smoker NA - 10/26/2023 JUNIOR Drug Questionnaire Question Answer Notes Have you used drugs other th an those for medical reasons in the past 12 months? No Have you ever had an STD Question Answer Notes Have you ever had an STD No Prevention Strategies Discussed Condoms Tobacco Control (Standard) Question Answer Notes Tobacco use: Former smoker When did you stop smoking? 10/26/2023 How long has it been since you last smoked? Less than 1 month AUDIT-C (Standard) Question Answer Notes Did you have a drink containing alcohol in the p ast year? No Points 0 Interpretation Negative Problems Problem Type SNOMED Code ICD Code Onset Dates Problem Status W/U Status Risk Notes Problem Amenorrhea (N91.2) Active confirmed Vital Signs Heart Rate 93 /min 10/26/2023 Temperature 98.7 degrees Fahrenheit 10/26/2023 Respiratory Rate 20 /min 10/26/2023 Height-cm 149.86 cm 10/26/2023 Oximetry 99 10/26/2023 Blood pressure diastolic 70 mm Hg 10/26/2023 Weight-kg 50.53 Kg 10/26/2023 Height 59 in 10/26/2023 Blood pressure systolic 118 mm Hg 10/26/2023 Weight 111.4 lbs 10/26/2023 BMI 22.5 kg/m2 10/26/2023 Encounters Encounter Location Date Provider Diagnosis [facility] [address] [place] [id number] 10/26/2023 Fransico Mon Abdominal pain R10.9 ; Pelvic pain R10.2 and Amenorrhea N91.[address] [place] [address] [address] [place] [id number] 10/27/2023 Fransico Mon [address] [place] [address] [address] [place] [id number] 11/22/2023 Fransico Smythedmundo Assessments Encounter Date Diagnosis (ICD Code) Assessment Notes Treatment Notes Treatment Clinical Notes Section Notes 10/26/2023 Abdominal pain (ICD-10 - R10.9) 10/26/2023 Pelvic pain (ICD-10 - R10.2) The examination is nondiagnostic and an unimpressive. The patient however is advised to seek emergency attention if she has increasing pain. The test was negative. She will review referred to [facility] for evaluation due to her complex obstetric history and 6 C-sections. If she should develop new or worsening symptoms prior to that appointment she should return for reevaluation 10/26/2023 Amenorrhea (ICD-10 - N91.2) Plan Of Treatment No Information Medical (General) History Surgical History Surgery Date(Month/Year) child Hospitalization History Reason Date(Month/Year) child
== END 2024-07-30 10:01 | disposition home or self-care (01) ==
LOC: OPS 08-15 14:35
PROVIDERS: PCP Family Medicine; Visit Provider Family Medicine
DX: Z53.9 Procedure and treatment not carried out, unspecified reason (principal)

== ENCOUNTER → 2025-01-09 14:40 | Outpatient (BNVA) | payer MEDICAID, SELFPAY | PROVIDERS: PCP Clinical Nurse Specialist Adult Health; Visit Provider Clinical Nurse Specialist Adult Health | DX: R39.9 Unspecified symptoms and signs involving the genitourinary system (principal); N30.01 Acute cystitis with hematuria | CPT/HCPCS: 81000; 87086 ==